=== PATIENT | male | born 1965 | race Caucasian/White ===

== ENCOUNTER → 2017-10-08 12:54 | Outpatient (CLI) | payer OTHER, SELFPAY ==
--- NOTE | 2017-10-10 07:00 | ONE_ITS ---
OCCUPATIONAL MEDICINE DATE OF SERVICE October 08, 2017 ASSESSMENT Lumbar strain, essentially resolved. PLAN He will continue performing stretches and exercises nightly. I am going to release him to [facility] today, although he is due to have one more PT reassessment in one months' time. He understands that if he e xperiences a flare-up, he can certainly contact the office for reassessment. Greater than 50% of this visit spent planning and coordinating care. 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 He does explain however, that he saw a brief worsening following an incident at work. He says on the after he had been on vacation for a week, he had returned to work and stepped off of the same p latform that had originally been associated with this injury. He says he felt immediate left lumbar d iscomfort and was very concerned at first. He says it lasted on a few hours and then spontaneously re solved. Likewise, after returning to PT that week, he says increasing his exercises through PT gave h im a little flare up, which lasted about two days. That took place on the first week of September, but f ollowing those two days, he says he has been very comfortable ever since. He is working without limit ations, tolerating that very well. He has exercises and stretches that he is performing every night. He has not needed medications for pain. PT is actually placing him on hold with plan to reassess in o ne month. REVIEW OF SYSTEMS Continues to feel generally well without loss of bladder or bowel control. No abdominal pain, nausea, vomiting, or GI complaints. No chest pain, cough, wheeze, or dyspnea. PAST MEDICAL HISTORY 1. Neck pain, which resolved with injection in 2016. 2. Carpal tunnel on the right. 3. Ulnar nerve release in 2015. 4. A distant history of lumbar surgery in 1984 and again in 2004. CURRENT MEDICATIONS He takes no current medications. SOCIAL HISTORY He smokes a pack of cigarettes daily. He rarely consumes alcohol. No substance abuse. OBJECTIVE GENERAL - Alert, pleasant, cooperative, in no acute distress. Gait is normal. Musculoskeletal exam - No tenderness to direct palpation of the lumbar spine. None in the paraspinou s muscles or the SI joints. DTR's - Patellars are 1+ bilaterally. Achilles are 1+ bilaterally. Straight leg raises are negative. Each extending 90 degrees. Range of motion - He was able to flex fully with fingertips reaching the floor. No pain at the end of flexion, extension, lateral bend or rotation. Heel and toe walk are intact. Sensory of lower extremities is intact.
== END ==
PROVIDERS: Visit Provider Nurse Practitioner Family
DX: M54.5 Low back pain (principal); M54.16 Radiculopathy, lumbar region; S39.012D Strain of muscle, fascia and tendon of lower back, subsequent encounter
CPT/HCPCS: 99214

== ENCOUNTER 2022-08-13 06:05 | Day surgery (SDC) | payer BC, SELFPAY ==
[2022-08-13] VITALS (10 sets, daily range): BP systolic 108–136; BP diastolic 68–98; PULSE 72–81; RESP 15–18; TEMP 36.5–36.7; O2SAT 95–98; BMI 34.0
--- NOTE | 2022-08-13 06:57 | W.ANESPRE ---
General Info Date of Service Date Performed: 08/13/22 Height: 5 ft 6 in Weight: 95.5 kg Body Mass Index (BMI): 34.0 Surgical Procedure: Operation Date: 08/13/22 07:40 Proposed Procedure Side Surgeon p Bronchoscopy w/BAL, Endobronchial Brushings, Possible Endobronchial Biopsy Desiree Kramer MD Meds Allergies and Home Medications Allergies Allergy/AdvReac Type Severity Reaction Status Date / Time No Known Allergies Allergy Verified 08/13/22 06:26 Home Medication Medication Instructions Recorded ammonium lactate 12 % topical cream 1 applic topical HS 07/26/22 cyclobenzaprine 10 mg tablet 10 mg PO TID PRN 07/26/22 varenicline 0.5 mg (11)-1 mg (42) See Rx Instructions PO PER PKG DIR 07/26/22 tablets in a dose pack (Chantix #53 dose pk Starting Month Box) varenicline 1 mg tablet (Chantix 1 mg PO BID #56 tabs 07/26/22 Continuing Month Box) Current Visit Medications: Current Medications Generic Name Dose Route Start Last Admin Trade Name Yobanyq PRN Reason Stop Dose Admin Albuterol/Ipratropium 3 ml 08/13/22 06:48 Albuterol/Ipratropium 3 Ml Upd Vial UPD 09/12/22 06:47 Q2H PRN PRN Ringer's Solution 1,000 mls @ 30 mls/hr 08/13/22 06:00 IV 09/09/22 23:59 INFUSION LAUREN IV Miscellaneous Supplies 1 each 08/13/22 06:00 Iv Access IV 09/09/22 23:59 DIRECTED LAUREN Sodium Chloride 0 ml 08/13/22 06:00 Normal Saline Flush 10 Ml Syr IV 09/09/22 23:59 PRN PRN Sodium Chloride 0 ml 08/13/22 06:00 Normal Saline 10 Ml Vial IJ 09/09/22 23:59 DIRECTED PRN Sterile Water 0 ml 08/13/22 06:00 Water,Injection,Sterile 10 Ml Vial IJ 09/09/22 23:59 DIRECTED PRN PFSH Active Problems Active Problems: Problem Status Onset Code Arthropathy M12.9 Benign paroxysmal positional vertigo H81.10 Carpal tunnel syndrome of left wrist G56.02 Cervical radiculopathy M54.12 Ganglion cyst M67.40 Heel callus L84 Insomnia G47.00 Intervertebral disc rupture M51.9 Lesion of ulnar nerve G56.20 Neck pain M54.2 Nicotine dependence F17.200 Pain in left wrist M25.532 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, U09.9 Shoulder joint pain M25.519 Subacute right lumbar radiculopathy M54.16 Other symptoms involving skin and integumentary tissues R23.8 Trigger finger, left middle finger M65.332 Endobronchial mass R91.8 Surgical History Surgical History H/O discectomy History of carpal tunnel release History of colonoscopy 12/30/20,10/30/19 Tobacco Smoking/Tobacco Use Status: Current every day Tobacco Type: cigarettes Smoking packs per day: 1 Smoking cigarettes per day: 20.0 and e-cigarettes Alcohol Alcohol Intake: current Alcohol intake frequency: holidays/special occasions only Substance Use Substance use: Never Substance use type: does not use Details: pt is currently vaping daily Vital Signs and Lab Results Vital Signs Most Recent Vital Signs in EMR: Most Recent Vital Signs Temp Pulse Resp BP Pulse Ox 36.5 C 81 18 136/98 H 97 08/13/22 06:27 08/13/22 06:27 08/13/22 06:27 08/13/22 06:27 08/13/22 06:27 Lab Results Blood Type / Crossmatch: No Data to Display Complete Blood Count: No Data to Display Complete Metabolic Panel: No Data to Display Liver Function Panel: No Data to Display Coagulation Panel: No Data to Display Cardiac Panel: No Data to Display Arterial Blood Gas: No Data to Display Venous Blood Gas: No Data to Display Pancreas Panel: No Data to Display Thyroid Panel: No Data to Display Infectious Disease: No Data to Display Blood Cultures: No Data to Display Toxicology Panel: No Data to Display Anesthesia Assessment and Plan Anesthesia History Personal History: No History of Anesthesia Complications Family History: No Family History of Anesthesia Complications Exercise Tolerance Exercise Tolerance: Metabolic Equivalents>4 Pertinent Negatives Pertinent Negatives: No Symptoms of GERD, No Major Cardiovascular Symptoms or Complaints, No Major Pulmonary Symptoms or Complaints and No History of CVA/TIA Cardiac & Pulmonary Exam Cardiac Exam: Normal S1/S2 Heart Sounds Pulmonary Exam: Clear Bilateral Breath Sounds Implantable Cardiac Device Does patient have a Pacemaker or an ICD?: No Airway Exam Known Difficult Airway: No Mallampati Class: 4 Mouth Opening: Narrow (< 3cm) Thyromental Distance: Less than 3 cm Neck Range of Motion: Full ROM Neck Circumference: Thick Teeth Condition: Normal Dentition ASA Classification ASA Score: ASA 2 Emergency Case?: No NPO Status NPO Status: NPO Clears >2 hours, Solids >8 hours Anesthesia Plan Resuscitation Status: Full Code Anesthesia Technique: General Anesthesia Airway Planned: Natural Airway Monitors Used: Standard Monitors
[2022-08-13] MEDS: Lactated Ringers 1,000 ML 30 ML IV (07:00)
[2022-08-13] MEDS: Lidocaine 1% Multi-Dose 10 ML VIAL (07:43)
--- NOTE | 2022-08-13 07:53 | PAPNONF_PTH ---
PATIENT: Graeme Dominguez LOC: [facility] U#:[id number] AGE/SX: 57/M ROOM: RE08/13/[address]: Desiree Kramer MD : 1965 BED: DIS: 08/13/2022 SPEC #: [id number] RECD: 08/13/22 12:56 STATUS: CHRIS REQ #: [id number] KVNG: 08/13/22 07:[address]: Desiree Kramer DEPT: [facility] Cytology RECD BY: Maria M Shetty ENTERED: 08/13/22 12:57 SP TYPE: PAPTHEOF STEPHANIE DR: Eric Espitia Tissues: 1 - BODY FLUID CYTO(NOT S/U/N/EM)[facility] 2 - BODY FLUID CYTO(SPUTUM/URINE)[facility] Procedures: BODY FLUID CYTO(NOT SPU/UR/NIP/ENDOM)[facility] BODY FLUID CYTO(URINE/SPUTUM) Comments: [id number] (REFRIGERATED)
--- NOTE | 2022-08-13 08:39 | W.PM.OP ---
Date of service: 08/13/22 Time of Service: 07:30 Operative Note Operative Note PRE-OP DIAGNOSIS: Endobronchial lesion POST-OP DIAGNOSIS: other (Normal exam) Refer to Anesthesia Record Procedure Description: Bronchoscopy Indication:Endobronchial lesion Procedure performed: Flexible bronchoscopy with BAL Sedation plan: General anesthesia Informed consent was obtained after the risks and benefits or the procedure were discussed.Anesthesia sedated and intubated the patient (see seperate report). A proper and complete OR compliant time out was performed. The therapeutic 6.2mm Olympus bronchoscope was inserted through the 8.0 endotracheal tube. The bronchoscope was inserted into the airways, were 3cc in total of 1% topical lidocaine was used the anesthetize the airways. The trachea was midline and without lesion or injury. The mucosa appeared normal and there were no signs of tracheomalacia. The juan pablo was sharp. All bronchial subsegments were visualized within each lobe and showed normal anatomy. There were thick, white secretions through the airways that were easily suctioned. There were no apparent endobronchial lesions/nodules/masses. Thorough inspection of the left hilar area was performed and no lesions were identified. A bronchoalveolar lavage was performed in the OLY. A total of 120cc of saline was administered with a return of 10cc. BAL was limited due to floppy airways with application of any negative force. The fluid was slightly cloudy in appearance. The bronchoscope was then removed and the case terminated. The patient was taken to PACU in stable condition. Samples collected:OLY BAL, bronchial washings Testing ordered:cell diff, bacterial, fungal and AFB cultures, cytopathology Complications:None Desiree Kramer MD Pulmonary & Critical Care Medicine
--- NOTE | 2022-08-13 09:19 | W.ANESPOSTOP ---
Postoperative Evaluation Date, Time and Location Date Performed: 08/13/22 Time Performed: 09:19 Patient Location: Day Surgery Unit Vital Signs Most Recent Imported Vital Signs: Most Recent Vital Signs Temp Pulse Resp BP Pulse Ox 36.5 C 74 16 108/81 95 08/13/22 08:40 08/13/22 08:40 08/13/22 08:40 08/13/22 08:40 08/13/22 08:40 Pain Score Most Recent Pain Score: Most Recent Pain Score Pain Level 0 08/13/22 08:40 Assessment Mental Status: Awake (Alert & Oriented to Patient Baseline) Airway and Respiratory Function: Patent airway with normal (patient baseline) respiratory exam Cardiovascular Function: Hemodynamically Stable Hydration Status: Adequately Hydrated Nausea & Vomiting: No Nausea or Vomiting Pain: Pt. Denies Any Pain Peripheral Nerve Block: Patient did not receive a nerve block Postoperative Comments:: Discussed care at bedside with patient and in the presence of spouse and DSU RN. Denied complaint and questions. Appropriate for discharge from anesthesia services.
[2022-08-15 09:53] LABS: Other Cells Fluid Relative See Comments %
[2022-09-11 08:53] LABS: Fungus Smear No Fungi Seen
[2022-09-11 08:54] LABS: Fungus Smear No Fungi Seen
== END 2022-08-13 09:26 | disposition home or self-care (01) ==
PROVIDERS: PCP Nurse Practitioner Family; Visit Provider Student in an Organized Health Care Education/Training Program
PROC: 0BJ08ZZ Inspection of Tracheobronchial Tree, Via Natural or Artificial Opening Endoscopic (ICD-10-PCS; CPT 31622; principal; 2022-08-13 07:30)
DX: J98.09 Other diseases of bronchus, not elsewhere classified (principal); F17.210 Nicotine dependence, cigarettes, uncomplicated
CPT/HCPCS: 31624; 80162; 87070; 87102; 87107; 87116; 87205; 87206; 88104; J1100; J2405

== ENCOUNTER 2023-01-16 10:36 | Outpatient (CLI) | payer BC, SELFPAY ==
--- NOTE | 2023-01-16 09:00 | DI.RAD_ITS ---
Exam(s) XR STANDING ALIGNMENT EXAM: XR STANDING ALIGNMENT CLINICAL HISTORY: BILATERAL KNEE PAIN. TECHNIQUE: 2D digital imaging was performed. Standing AP views were performed from the pelvis throu gh the ankles. COMPARISON: CR XR KNEE COMPLETE MIN 4V BILAT-M2 from 11/19/2022 FINDINGS: BONES: No acute fracture is present. No bony destructive lesion is seen. Leg length discrepancy: Minimal JOINTS: Knees: Moderate to severe narrowing of the medial femoral tibial joint spaces of both knees w ith varus angulation. Mild chondrocalcinosis. The ankle joints are unremarkable. The hip joints are unremarkable. SOFT TISSUE: Normal. IMPRESSION: To severe degenerative changes medial femoral tibial joint spaces of both knees.. No significant leg length discrepancy. DATA REPOSITORY: RADIATION DOSE DELIVERED:
== END 2023-01-16 10:37 | disposition home or self-care (01) ==
LOC: DIORS 10:36
PROVIDERS: PCP Nurse Practitioner Family; Visit Provider Student in an Organized Health Care Education/Training Program
DX: M17.0 Bilateral primary osteoarthritis of knee
CPT/HCPCS: 77073

== ENCOUNTER 2023-05-24 05:51 | Day surgery (SDC) | payer BC, SELFPAY ==
--- NOTE | 2023-05-23 13:51 | ANES.PREOP_ITS ---
General Info Date of Service Date Performed: 05/24/23 Height: 5 ft 6 in Weight: 97.522 kg Body Mass Index (BMI): 34.7 Surgical Procedure: Operation Date: 05/24/23 08:00 Proposed Procedure Side Surgeon p Knee Medial Unicondylar Arthroplasty Left Mikhail Roberts MD Meds Allergies and Home Medications Allergies Allergy/AdvReac Type Severity Reaction Status Date / Time No Known Allergies Allergy Verified 05/24/23 06:12 Home Medication Medication Instructions Recorded cyclobenzaprine 10 mg tablet 10 mg PO TID PRN 07/26/22 Current Visit Medications: Current Medications Generic Name Dose Route Start Last Admin Trade Name Freq PRN Reason Stop Dose Admin Ringer's Solution 1,000 mls @ 30 mls/hr 05/24/23 06:00 IV 05/24/23 23:59 INFUSION LAUREN Cefazolin Sodium/Dextrose 2 gm in 50 mls @ 100 mls/hr 05/24/23 06:00 Ancef Duplex IVPB 05/24/23 23:59 PREOP LAUREN Tranexamic Acid/Sodium Chloride 1,000 mg in 100 mls @ 600 mls/hr 05/24/23 0 6:00 IVPB 05/24/23 23:59 PREOP LAUREN IV Miscellaneous Supplies 1 each 05/24/23 06:00 Iv Access IV 05/24/23 23:59 DIRECTED LAUREN Sodium Chloride 0 ml 05/24/23 06:00 Normal Saline Flush 10 Ml Syr IV 05/24/23 23:59 PRN PRN Sodium Chloride 0 ml 05/24/23 06:00 Normal Saline 10 Ml Vial IJ 05/24/23 23:59 DIRECTED PRN Sterile Water 0 ml 05/24/23 06:00 Water,Injection,Sterile 10 Ml Vial IJ 05/24/23 23:59 DIRECTED PRN PFSH Active Problems Active Problems: Problem Status Onset Code Arthritis of knee, right M17.11 Arthritis of knee, left M17.12 Bilateral primary osteoarthritis of knee M17.0 Endobronchial mass R91.8 Trigger finger, left middle finger M65.332 Other symptoms involving skin and integumentary tissues R23.8 Subacute right lumbar radiculopathy M54.16 Shoulder joint pain M25.519 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, U09.9 Pain in left wrist M25.532 Nicotine dependence F17.200 Neck pain M54.2 Lesion of ulnar nerve G56.20 Intervertebral disc rupture M51.9 Insomnia G47.00 Heel callus L84 Ganglion cyst M67.40 Cervical radiculopathy M54.12 Carpal tunnel syndrome of left wrist G56.02 Benign paroxysmal positional vertigo H81.10 Arthropathy M12.9 Surgical History Surgical History H/O discectomy History of carpal tunnel release History of colonoscopy 12/30/20,10/30/19 Tobacco Smoking/Tobacco Use Status: Former Tobacco Use Alcohol Alcohol Intake: current Alcohol intake frequency: holidays/special occasions only Substance Use Substance use: Never Substance use type: does not use Vital Signs and Lab Results Vital Signs Most Recent Vital Signs in EMR: Temp Pulse Resp BP Pulse Ox 36.7 C 82 16 138/92 H 95 05/24/23 06:14 05/24/23 06:14 05/24/23 06:14 05/24/23 06:14 05/24/23 06:14 Lab Results Blood Type / Crossmatch: No Data to Display Complete Blood Count: No Data to Display Complete Metabolic Panel: No Data to Display Liver Function Panel: No Data to Display Coagulation Panel: No Data to Display Cardiac Panel: No Data to Display Arterial Blood Gas: No Data to Display Venous Blood Gas: No Data to Display Pancreas Panel: No Data to Display Thyroid Panel: No Data to Display Infectious Disease: No Data to Display Blood Cultures: No Data to Display Toxicology Panel: No Data to Display Anesthesia Assessment and Plan Anesthesia History Personal History: No History of Anesthesia Complications Family History: No Family History of Anesthesia Complications Exercise Tolerance Exercise Tolerance: Metabolic Equivalents>4 Cardiac & Pulmonary Exam Cardiac Exam: Normal S1/S2 Heart Sounds Pulmonary Exam: Clear Bilateral Breath Sounds Implantable Cardiac Device Does patient have a Pacemaker or an ICD?: No Airway Exam Known Difficult Airway: No Mallampati Class: 4 Mouth Opening: Narrow (< 3cm) Thyromental Distance: Less than 3 cm Neck Range of Motion: Full ROM Neck Circumference: Thick Teeth Condition: Normal Dentition ASA Classification ASA Score: ASA 2 Emergency Case?: No NPO Status NPO Status: NPO Clears >2 hours, Solids >8 hours Anesthesia Plan Resuscitation Status: Full Code Anesthesia Technique: General Anesthesia Airway Planned: Endotracheal Tube Pain Management: Surgeon and patient request nerve block Monitors Used: Standard Monitors Preoperative Comments:: 58 yo male for uni knee arthroplasty. Sig PMHx: cervical radiculopathy, vertigo, smoker, occ EtOH. denies major. Previous Anes: - bronch, glide 3, 2a. Discussed risks, benefits, and alternatives of spinal, GA, regional anesthesia. Plan for spinal with adductor +/- anterior femoral cutaneous.
[2023-05-24] VITALS (12 sets, daily range): BP systolic 136–168; BP diastolic 84–100; PULSE 80–93; RESP 16–25; TEMP 36.5–37; O2SAT 94–97; BMI 34.7
--- NOTE | 2023-05-24 07:05 | W.PM.DSUDISC ---
Date of service: 05/24/23 Time of Service: 11:00 Discharge Plan Disposition Patient Disposition: Home Condition: Stable Discharge Details Attending Provider: Mikhail Roberts Primary Care Provider: Eric Espitia Home Meds and New Rx's Prescriptions: New aspirin 81 mg capsule 81 mg PO BID 30 Days Qty: 60 0RF naproxen 250 mg tablet 250 - 500 mg PO BID PRN (Reason: moderate pain and swelling) Qty: 40 0RF oxycodone 5 mg tablet 5 - 10 mg PO .q4-6h PRN (Reason: severe pain) Qty: 18 0RF Continued cyclobenzaprine 10 mg tablet 10 mg PO TID PRN Discharge Instructions Additional Instructions: Surgery: Left medial unicondylar knee replacement Activity: Weightbearing as tolerated. Recommend elevation to minimize swelling and discomfort. Walk as comfort allows. May use crutches or walker as needed for a few weeks. It is important to restore full knee extension as soon as possible. Gently increase knee flexion over the next few weeks. Do not rest with pillows behind knee to prevent knee from getting stuck bent. Encourage ankle pumps and wiggling toes to increase circulation. A physical therapy prescription will be sent electronically to begin in 2-3 weeks. Prescriptions: Aspirin 81 mg take 1 twice a day to prevent a blood clot 30 days Naproxen 250 mg take 1-2 every 12 hours with a meal as needed for moderate pain Oxycodone 5 mg take 1-2 every 4-6 hours as needed for severe pain You may use [id number] Tylenol (acetaminophen) as needed for mild pain. These pain medications may be taken all at once or in different combinations as needed. Also, recommend Colace (docusate) as a stool softener as surgery and pain medicine cause constipation. You may try [id number] diphenhydramine (Benadryl) 25-50 mg nightly as a sleep aid Dressings: Leave Band-Aid in place until follow-up. Keep clean and dry at all times. May remove Clarence wrap tomorrow. May re-wrap with Clarence wrap to help control swelling as needed. Follow-up: 10-[address] Roberts You may take off the leg compression Clarence wrap and stockings tomorrow at home. You may also leave them on a few days longer if you have a history of leg swelling or edema. Let us know right away if you develop any redness, drainage, fevers, chest pain, or trouble breathing. Do not drink alcohol or drive for at least 24 hours after anesthesia. Please call the office during business hours with any questions or concerns. Stand Alone Forms: Anesthesia Discharge Inst., Anes.Nerve Block Instructions, David Viera ([facility]U) Referrals: Mikhail Roberts MD [ [facility] STAFF PHYSICIAN] - 06/05/23 9:00 am Discharge Orders Discharge Orders: Discharge Order (Routine); Ordered 05/24/23 Ordered By: Leesa Horner Discharge Data Discharge Date/Time-TO BE ENTERED AT DEPARTURE: 05/24/23 14:46 DS: Diagnosis Discharge Diagnosis (1) Arthritis of knee, left: Status: Acute
[2023-05-24] MEDS: Acetaminophen 500 MG TAB 1000 MG PO (07:12)
[2023-05-24] MEDS: Celecoxib 200 MG CAP 400 MG PO (07:12)
[2023-05-24] MEDS: Gabapentin 300 MG CAP PO (07:14)
[2023-05-24] MEDS: Lactated Ringers 1,000 ML 30 ML IV (07:15)
--- NOTE | 2023-05-24 07:16 | W.PM.OP ---
Date of service: 05/24/23 Time of Service: 07:30 Operative Note Operative Note DATE OF PROCEDURE: 05/24/23 PRE-OP DIAGNOSIS: Left knee medial compartmental arthritis POST-OP DIAGNOSIS: same PROCEDURE: Left knee medial unicompartmental arthroplasty, CPT # 60052 The retail administrative assistant was medically required as this procedure involves retraction, protection of neurovascular structures, and manipulation of multiple instruments and implants at the same time, which cannot be done without a skilled retail administrative assistant. SURGEON: Mikhail Roberts PROTECTION ENGINEER: Leesa Horner ANESTHESIA TYPE: Local By Surgeon, General LMA/ETT and Primary Nerve Block Refer to Anesthesia Record ESTIMATED BLOOD LOSS: 50 TOURNIQUET TIME: 0 COMPLICATIONS: None Patient was transported to: PACU Patient's condition: stable Implants: DePuy Sigma HP partial knee size 3 metal-backed tibial tray, 9 mm tibial insert fixed bearing, size 4 femoral component Indications: Please see complete medical record for details. Findings: Largely isolated medial compartment arthritis mild superior lateral trochlear marginal osteophyte formation with mild central trochlear chondromalacia. Intact ACL and lateral compartment. Procedure Description: The patient was taken to the operating room and transferred to the operating room table. General anesthesia was induced. All bony prominences were well-padded. Preoperative antibiotics and 1 g TXA were administered. A tourniquet was placed loosely over padding high on the patient's thigh. The knee and lower extremity were prepped and draped in the usual sterile fashion. The correct patient, procedure, and side of the procedure were all verified prior to incision. A slightly medial of midline longitudinal approach was used to the knee extending from the superior pole the patella to the distal aspect of the tibial tubercle. The quadriceps tendon, patella borders, and patellar tendon were exposed. A full-thickness arthrotomy was performed starting splitting the quadriceps tendon and leaving a sleeve of tissue on the medial aspect of the patella and taking care to progress along the medial margin the patellar tendon. The MCL was elevated off the proximal medial tibia. The tibial alignment jig was set in place on the anterior medial aspect of the tibia and carefully adjusted to achieve proper alignment in the coronal and sagittal planes. Reciprocating saw was used to create the vertical cut at the medial aspect of the medial tibial eminence taking care to protect the ACL ligament footprint. The transverse cut was then done using the microsagittal saw through the jig taking care to retract and protect the MCL. The bone piece and cut were inspected and found to be appropriate for patient anatomy. A box rasp was used to clean up the cut especially the L component. The 9 mm spacer block was inserted and found to have good stability in full extension and 8 mm spacer block in 90 degrees of flexion with approximately 2 mm of joint space opening in about 20 degrees of flexion. With the knee in extension, the tibial trial spacer block was used to malissa the rotational alignment and anterior extent of the femoral component. The spacer block was removed and the tibia was sized with the depth gauge. The -1 mm distal femoral cutting block was inserted taking care to orient it appropriately to account for the difference in extension and flexion gaps. The cut was done using the saw through the guide. The posterior cutting block was then applied to the distal cut, ensured to be flush, rotation set, and it was pinned in place. The posterior cut was completed through the guide. The guide was removed, and the femur was sized with the femoral sizing blocks. The appropriate sized cutting jig was selected. Care was taken to ensure the block was flush with the resected distal and posterior femur bone surfaces. A curved gouge was used to cut the profile of the proximal tip of the femoral prosthesis, malissa the extent of the anterior chamfer cut, and prevent trochlear cartilage delamination. The anterior cut was done using the osteotomes, the drill was used to drill the 2 peg holes, and the posterior chamfer cut was done through the jig with the saw. This last cutting block and bone cuts were removed. The medial meniscus remnant was removed. The femoral component trial was placed on the distal femur and the 8-9 mm spacer blocks showed appropriate balancing in flexion, extension, and again 2 mm of medial joint space opening in about 20 degrees of flexion. Tibial template was inserted and the size confirmed to be appropriate. The keel was used by hand to remove bone from the slot and the tibial peg drill was used in the peg hole. The pulse lavage was used to clean the bone surfaces. SmartSet medium viscosity cement was prepared. At the appropriate time during the early working phase, the cement was applied to the backside of the tibial and femoral components. Then, cement was carefully placed and pressurized into the proximal tibia taking care to only have minimal cement posteriorly. The tibial component was inserted at an angle and then impacted directing pressure from posterior to anterior to keep the flow of cement from posterior to anterior. Cement was then applied to the distal femur and the femoral component impacted. Excess cement was removed. The knee was brought into full extension and this position with axial load was maintained until the cement was completely hardened at 19 minutes. A combination R.E.C.K. (123 mg Ropivacaine, 0.25 mg Epinephrine, 0.04 mg Clonidine, and 15 mg Ketorolac) 50 ml injection was widely infiltrated about the knee. The wound was copiously irrigated with the pulse lavage and Surgiphor. Tibial tray trial was reinserted, and final 9 mm size confirmed to be most appropriate. Trial insert was removed, and the final tibial insert was inserted and clicked into place. The knee was tested through range of motion found to be stable with equal balancing from full extension to flexion past 90 degrees and a couple millimeters of medial joint space opening in 20-30 degrees of flexion. Appropriate hemostasis was achieved. The capsule was approximated using #1 Vicryl in a figure-of-8 interrupted fashion and then closed using Stratafix #1 PDS barbed suture in a running fashion. The superficial layers were irrigated. Subcutaneous tissue was closed using 2-0 Monocryl in a buried interrupted fashion. Skin was closed using 3-0 Monocryl in a buried subcuticular fashion. The skin incision was glued and then covered with a Mepilex Ag dressing. An Clarence wrap was applied from the foot up to the thigh.
[2023-05-24] MEDS: ceFAZolin 2 GM/50 ML BAG IVPB (07:34)
[2023-05-24] MEDS: TRANEXAMIC ACID/SOD. CHL. 1,000 MG/100 ML BAG 600 MG IVPB (07:38)
--- NOTE | 2023-05-24 09:03 | W.ANESNERVE ---
Nerve Block Single Injection Procedure Date and Time Date Performed: 05/24/23 Procedure Start: 07:17 Location Where Procedure Performed Procedure Location: Day Surgery Unit Reason Performed: Postoperative Analgesia Requesting Provider: Mikhail Roberts Timeout Performed Timeout Performed: Yes Monitoring Used ECG, Blood Pressure, SpO2 and See EMR for corresponding vital signs Sterility Sterility: Hand Hygiene, Surgical Cap, Surgical Mask, Sterile Gloves and Chlorhexidine Sedation Given During Procedure Sedation Given (Indicate Dose Given): Versed IV Dose:: 2mg Patient Mental Status Patient Mental Status: Sedate with meaningful communication Nerve Block 1st Nerve Block: Laterality: Left Block Type: Adductor Canal Ultrasound Image Saved?: Yes Needle / Catheter Used: 100mm SonoPlex II Local Anesthetic Bolus (Indicate Dose Given): Lidocaine used for local infiltration of skin, Injected in 3-5ml increments after negative blood aspiration and Bupivacaine 0.25% Dose:: 11 mL Additives (Indicate Dose Given): None Ultrasound: Sterile probe cover and gel used Nerve Stimulator: Supplement to Ultrasound use Paresthesia: None Procedure Tolerated: No Complications and Patient tolerated well Procedure Outcome: Successful Performed By: Elsie Rosales Supervised By: Mannie Zurita
--- NOTE | 2023-05-24 11:59 | DI.RAD_ITS ---
Exam(s) XR KNEE LT 2V AP,LAT EXAM: XR KNEE LT 2V AP,LAT INDICATION: Left knee arthritis. COMPARISON: No exams were available for comparison TECHNIQUE: 2D digital imaging was performed. Two views. Portable FINDINGS: A medial femoral tibial joint space prosthesis has been placed. The alignment appears satisfactory. There is residual postsurgical air in the soft tissues. DATA REPOSITORY: RADIATION DOSE DELIVERED:
--- NOTE | 2023-05-24 12:53 | W.ANESPOSTOP ---
Postoperative Evaluation Date, Time and Location Date Performed: 05/24/23 Time Performed: 12:53 Patient Location: Day Surgery Unit Vital Signs Most Recent Imported Vital Signs: Most Recent Vital Signs Temp Pulse Resp BP Pulse Ox 36.5 C 90 16 142/86 H 94 05/24/23 12:29 05/24/23 12:29 05/24/23 12:05/24/23 12:05/24/23 12:29 Pain Score Most Recent Pain Score: Most Recent Pain Score Pain Level 5 05/24/23 12:29 Assessment Mental Status: Awake (Alert & Oriented to Patient Baseline) Airway and Respiratory Function: Patent airway with normal (patient baseline) respiratory exam Cardiovascular Function: Hemodynamically Stable Hydration Status: Adequately Hydrated Nausea & Vomiting: No Nausea or Vomiting Pain: Pain is tolerable per patient Peripheral Nerve Block: Regional nerve block not resolved at time of post operative discharge
[2023-05-24] MEDS: oxyCODONE 5 MG TAB PO (12:54)
[2023-05-24] MEDS: Lactobacillus Acidophilus CAP 1 CAP PO (12:59)
--- NOTE | 2023-05-24 13:05 | PT.INIE ---
PT Notes Physical Therapy Day Surgery Initial Evaluation Date: 05/24/2023 Referring Doctor: Mikhail Roberts MD PT Orders: PT CONSULT: S/P Ortho Surgery Precautions: WBAT on left LE with AD. Patient Profile/Admitting Diagnosis: Adarsh is a 58-year-old male with left medial compartment arthritis and is status post left knee medial unicompartmental arthroplasty on postoperative day 0. 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 Works as a marketing operations manager. Independent with ADLs prior to surgery. Equipment Owned/DME: None Subjective: Reported 3?4/10 pain on the left knee at rest and with weight bearing. Reported minimal lightheadedness that resolved with mobility performance. Denied headache and chest pain throughout. Objective: General Observation: WAYNE wrap on L LE. TEDS to B legs. Mental Status: A and O x 4 Pain: As above ROM: Right Lower Extremity: Hip flexion WFL. Hip abduction WFL. Knee flexion WFL. Ankle dorsiflexion WFL. Ankle plantarflexion WFL. Left Lower Extremity: Hip flexion WFL. Hip abduction WFL. Knee flexion 0-100 degrees. Ankle dorsiflexion WFL. Ankle plantarflexion WFL. Strength: Right Lower Extremity: Hip flexors 5/5. Hip abductors 5/5. Knee flexors 5/5. Knee extensors 5/5. Ankle dorsiflexors 5/5. Ankle plantarflexors 5/5. Left Lower Extremity:Hip flexors 4/5. Hip abductors 4/5. Knee flexors 3-/5. Knee extensors 4-/5. Ankle dorsiflexors 5/5. Ankle plantarflexors 5/5. Sensation: Intact as to pain and light pressure in B LE Bed Mobility/Transfers: Minimal cueing provided for use of B hands as needed for support, movement sequence, AD management, and posture to reduce fall risk and minimize pain report Supine to sit standby assist Sit to stand stand by assist Stand to sit standby assist Bed to chair standby assist Gait: Facilitated safe and correct performance of level surface ambulation covering a distance of 150 feet using front wheeled walker with step through reciprocal heel-toe gait pattern requiring only standby assist and minimal verbal cueing for AD management, posture, limb movement sequence, to reduce fall risk and minimize pain report. Stairs: Guided patient with safe and correct negotiation of 6 x 4 inch steps and 4 x 6 inch steps holding onto bilateral rails with step to gait pattern requiring minimal verbal cueing for limb movement sequence , hand placement, and posture to minimize fall risk and reduce pain report. Balance: static Sitting: Normal Dynamic Sitting: Normal Static Standing: Fair Dynamic Standing: Fair Special Tests: Mobility Limitations Standardized Measure [facility] AM-PAC 6 clicks Basic Mobility Inpatient Short Form: Raw Score: 24 CMS Score: 0% deficit Informed Consent/Education: Patient instructed in purpose of PT consult. Packet containing partial TKA exercise protocol has been given to patient. Education and training on initial set of exercises that can be done at home have been completed with patient. Trained patient with correct performance of exercises below to maximize motor control, joint flexibility, soft tissue extensibility of the [] knee musculature: Access Code: [email or web address] URL: [email or web address] Date: 05/24/2023 Prepared by: Pearl Carroll Exercises - Supine Quad Set - 1 x daily - 7 x weekly - 1 sets - 10 reps - 5 hold - Supine Heel Slide - 1 x daily - 7 x weekly - 1 sets - 10 reps - 5 hold - Supine Ankle Pumps - 1 x daily - 7 x weekly - 1 sets - 10 reps - 5 hold - Small Range Straight Leg Raise - 1 x daily - 7 x weekly - 1 sets - 10 reps - 5 hold - Seated March - 1 x daily - 7 x weekly - 1 sets - 10 reps - 5 hold Assessment: Patient requires use of a front wheeled walker for mobility ADL performance maximize independence and reduce fall risk. Patient presents with clinical signs and symptoms consistent with current/admitting diagnoses that have resulted to mobility limitations, gait instability, generalized weakness, and impairment of motor control as demonstrated by the following impairment level findings: 1. Decreased strength to left knee major muscle groups 2. Impaired standing balance 3. Limitation of joint range of motion in left knee Impairments are contributing to the following functional limitations: 1. Inability to safely ambulate without assistive device 2. Increase completion time for mobility ADL performance 3. Increased fall risk Patient is assessed as a 46749 moderate complexity based on the following: History: 58-year-old male with impairment level findings, functional limitations, and past medical history as indicated above Examination: Demonstrable impairment in strength, balance, and mobility level with underlying impairments and functional limitations as documented above Presentation: Evolving Decision Makin moderate complexity Goals: N/A. PT evaluation and 1-2 treatment sessions only for functional mobility training using recommended AD and for HEP instruction. Plan of Care/Treatment Plan: N/A. PT evaluation and 1-2 treatment session only for functional mobility training using recommended AD and for HEP instruction. DISCHARGE RECOMMENDATIONS: Home when medically cleared by orthopedic surgeon. Recommend outpatient PT services in order to optimize functional mobility outcomes and facilitate return to independent community ambulation without an assistive device. TREATMENT CODE/TIME: 03390 x 20 minutes for 1 unit, 88392 x 23 minutes for 2 units (13:05-13:48). Thank you for the opportunity to participate in the care of this patient. Please sign an return this page within 30 days if you agree with the above POC. Thank you! Physician Signature Date [facility] Thank you for the opportunity to participate in the care of this patient. Pearl Carroll PT, DPT, CLT [facility] [place], [place]
== END 2023-05-24 14:46 | disposition home or self-care (01) ==
PROVIDERS: PCP Nurse Practitioner Family; Visit Provider Student in an Organized Health Care Education/Training Program
PROC: (CPT 27446; principal; 2023-05-24 07:30)
DX: M17.12 Unilateral primary osteoarthritis, left knee (principal)
CPT/HCPCS: 27446; 76942; 97162; 97530; 73560; C1776; J0665; J0690; J1100; J1885; J1920; J2001; J2250; J2371; J2405; J2704

== ENCOUNTER 2023-06-05 11:50 | Outpatient (CLI) | payer BC, SELFPAY ==
--- NOTE | 2023-06-05 09:00 | DI.RAD_ITS ---
Exam(s) XR KNEE LT 2V AP,LAT EXAM: XR KNEE LT 2V AP,LAT CLINICAL HISTORY: F/U LEFT UKA. TECHNIQUE: 2D digital imaging was performed. Three views. COMPARISON: CR XR KNEE LT 2V AP,LAT from 05/24/2023 FINDINGS: BONES: There has been no change in the medial femoral tibial joint space prosthesis. No adjacent abn ormal bony lucencies. No acute fracture is present. No bony destructive lesion is seen. JOINTS: The knee is normally aligned. A joint effusion is seen. SOFT TISSUE: Anterior swelling. IMPRESSION: Stable appearance of knee prosthesis. DATA REPOSITORY: RADIATION DOSE DELIVERED:
== END 2023-06-05 11:51 | disposition home or self-care (01) ==
LOC: DIORS 11:50
PROVIDERS: PCP Nurse Practitioner Family; Visit Provider Student in an Organized Health Care Education/Training Program
DX: M25.462 Effusion, left knee (principal); Z96.652 Presence of left artificial knee joint
CPT/HCPCS: 73560

== ENCOUNTER 2023-06-21 06:01 | Day surgery (SDC) | payer BC, SELFPAY ==
[2023-06-21] VITALS (10 sets, daily range): BP systolic 131–156; BP diastolic 82–95; PULSE 78–86; RESP 11–23; TEMP 36.4–37; O2SAT 76–98; BMI 33.9
[2023-06-21] MEDS: Gabapentin 300 MG CAP PO (06:27)
[2023-06-21] MEDS: Celecoxib 200 MG CAP 400 MG PO (06:27)
[2023-06-21] MEDS: Acetaminophen 500 MG TAB 1000 MG PO (06:27)
[2023-06-21] MEDS: Lactated Ringers 1,000 ML 30 ML IV (06:46)
--- NOTE | 2023-06-21 07:09 | W.PM.DSUDISC ---
Date of service: 06/21/23 Time of Service: 12:30 Discharge Plan Disposition Patient Disposition: Home Condition: Stable Discharge Details Attending Provider: Mikhail Roberts Primary Care Provider: Eric Espitia Home Meds and New Rx's Prescriptions: New naproxen 250 mg tablet 250 - 500 mg PO BID PRN (Reason: moderate pain and swelling) Qty: 40 0RF oxycodone 5 mg tablet 5 - 10 mg PO .q4-6h PRN (Reason: severe pain) Qty: 25 0RF Continued acetaminophen 500 mg capsule 500 mg PO Q6H PRN cyclobenzaprine 10 mg tablet 10 mg PO TID PRN aspirin 81 mg capsule 81 mg PO BID 30 Days Qty: 60 0RF naproxen 250 mg tablet 250 - 500 mg PO BID PRN (Reason: moderate pain and swelling) Qty: 40 0RF Discharge Instructions Additional Instructions: Surgery: Right medial unicondylar knee replacement Activity: Weightbearing as tolerated. Recommend elevation to minimize swelling and discomfort. Walk as comfort allows. May use crutches or walker as needed for a few weeks. It is important to restore full knee extension as soon as possible. Gently increase knee flexion over the next few weeks. Do not rest with pillows behind knee to prevent knee from getting stuck bent. Encourage ankle pumps and wiggling toes to increase circulation. A physical therapy prescription will be sent electronically to begin in 2-3 weeks. Prescriptions: Aspirin 81 mg take 1 twice a day to prevent a blood clot 30 days, starting tomorrow morning Naproxen 250 mg take 1-2 every 12 hours with a meal as needed for moderate pain Oxycodone 5 mg take 1-2 every 4-6 hours as needed for severe pain You may use [id number] Tylenol (acetaminophen) as needed for mild pain. These pain medications may be taken all at once or in different combinations as needed. Also, recommend Colace (docusate) as a stool softener as surgery and pain medicine cause constipation. You may try [id number] diphenhydramine (Benadryl) 25-50 mg nightly as a sleep aid Dressings: Leave Band-Aid in place until follow-up. Keep clean and dry at all times. May remove Clarence wrap tomorrow. May re-wrap with Clarence wrap to help control swelling as needed. Follow-up: 10-[address] Roberts You may take off the leg compression Clarence wrap and stockings tomorrow at home. You may also leave them on a few days longer if you have a history of leg swelling or edema. Let us know right away if you develop any redness, drainage, fevers, chest pain, or trouble breathing. Do not drink alcohol or drive for at least 24 hours after anesthesia. Please call the office during business hours with any questions or concerns. Stand Alone Forms: Anesthesia Discharge Inst.Cuco.Nerve Block Instructions, David Viera (DSU) Discharge Orders Discharge Orders: Discharge Order (Routine); Ordered 06/21/23 Ordered By: Leesa Horner Discharge Data Discharge Date/Time-TO BE ENTERED AT DEPARTURE: 06/21/23 13:30 DS: Diagnosis Discharge Diagnosis (1) Arthritis of knee, right: Status: Acute
--- NOTE | 2023-06-21 07:12 | W.PM.OP ---
Date of service: 06/21/23 Time of Service: 07:30 Operative Note Operative Note DATE OF PROCEDURE: 06/21/23 PRE-OP DIAGNOSIS: Right knee medial compartmental arthritis POST-OP DIAGNOSIS: same PROCEDURE: Right knee medial unicompartmental arthroplasty, CPT # 30724 The assistant store manager operations was medically required as this procedure involves retraction, protection of neurovascular structures, and manipulation of multiple instruments and implants at the same time, which cannot be done without a skilled assistant store manager operations. SURGEON: Mikhail Roberts NEWS GATHERING TECHNICIAN: Leesa Horner ANESTHESIA TYPE: Local By Surgeon, General LMA/ETT and Primary Nerve Block Refer to Anesthesia Record ESTIMATED BLOOD LOSS: 75 TOURNIQUET TIME: 0 COMPLICATIONS: None Patient was transported to: PACU Patient's condition: stable Implants: DePuy Sigma HP partial knee size 3 metal-backed tibial tray, 8 mm tibial insert fixed bearing, size 4 femoral component Indications: Please see complete medical record for details. Findings: Largely isolated medial compartment arthritis. Intact ACL and lateral and patellofemoral compartments. Procedure Description: The patient was taken to the operating room and transferred to the operating room table. General anesthesia was induced after attempted spinal. All bony prominences were well-padded. Preoperative antibiotics and 1 g TXA were administered. A tourniquet was placed loosely over padding high on the patient's thigh. The Right knee and lower extremity were prepped and draped in the usual sterile fashion. The correct patient, procedure, and side of the procedure were all verified prior to incision. A slightly medial of midline longitudinal approach was used to the knee extending from the superior pole the patella to the distal aspect of the tibial tubercle. The quadriceps tendon, patella borders, and patellar tendon were exposed. A full-thickness arthrotomy was performed starting splitting the quadriceps tendon and leaving a sleeve of tissue on the medial aspect of the patella and taking care to progress along the medial margin the patellar tendon. The MCL was elevated off the proximal medial tibia. The tibial alignment jig was set in place on the anterior medial aspect of the tibia and carefully adjusted to achieve proper alignment in the coronal and sagittal planes. Reciprocating saw was used to create the vertical cut at the medial aspect of the medial tibial eminence taking care to protect the ACL ligament footprint. The transverse cut was then done using the microsagittal saw through the jig taking care to retract and protect the MCL. The bone piece and cut were inspected and found to be appropriate for patient anatomy. A box rasp was used to clean up the cut especially the L component. The 8 mm spacer block was inserted and found to have good good equal stability in full extension and 90 degree flexion with approximately 2 mm of joint space opening in about 20 degrees of flexion. With the knee in extension, the tibial trial spacer block was used to malissa the rotational alignment and anterior extent of the femoral component. The spacer block was removed and the tibia was sized with the depth gauge. The distal femoral cutting block was inserted taking care to orient it appropriatel. The cut was done using the saw through the guide. The posterior cutting block was then applied to the distal cut, ensured to be flush, rotation set, and it was pinned in place. The posterior cut was completed through the guide. The guide was removed, and the femur was sized with the femoral sizing blocks. The appropriate sized cutting jig was selected. Care was taken to ensure the block was flush with the resected distal and posterior femur bone surfaces. A curved gouge was used to cut the profile of the proximal tip of the femoral prosthesis, malissa the extent of the anterior chamfer cut, and prevent trochlear cartilage delamination. The anterior cut was done using the osteotomes, the drill was used to drill the 2 peg holes, and the posterior chamfer cut was done through the jig with the saw. This last cutting block and bone cuts were removed. The medial meniscus remnant was removed. The femoral component trial was placed on the distal femur and the 8 mm spacer blocks showed appropriate balancing in flexion, extension, and again 2 mm of medial joint space opening in about 20 degrees of flexion. Tibial template was inserted and the size confirmed to be appropriate. The keel was used by hand to remove bone from the slot and the tibial peg drill was used in the peg hole. The pulse lavage was used to clean the bone surfaces. SmartSet medium viscosity cement was prepared. At the appropriate time during the early working phase, the cement was applied to the backside of the tibial and femoral components. Then, cement was carefully placed and pressurized into the proximal tibia taking care to only have minimal cement posteriorly. The tibial component was inserted at an angle and then impacted directing pressure from posterior to anterior to keep the flow of cement from posterior to anterior. Cement was then applied to the distal femur and the femoral component impacted. Excess cement was removed. The knee was brought into full extension and this position with axial load was maintained until the cement was completely hardened at 19 minutes. A combination R.E.C.K. (123 mg Ropivacaine, 0.25 mg Epinephrine, 0.04 mg Clonidine, and 15 mg Ketorolac) 50 ml injection was widely infiltrated about the knee. The wound was copiously irrigated with the pulse lavage and Surgiphor. Tibial tray trial was reinserted, and final 8 mm size confirmed to be most appropriate. Trial insert was removed, and the final tibial insert was inserted and clicked into place. The knee was tested through range of motion found to be stable with equal balancing from full extension to flexion past 90 degrees and a couple millimeters of medial joint space opening in 20-30 degrees of flexion. Appropriate hemostasis was achieved. The capsule was approximated using #1 Vicryl in a figure-of-8 interrupted fashion and then closed using Stratafix #1 PDS barbed suture in a running fashion. The superficial layers were irrigated. Subcutaneous tissue was closed using 2-0 Monocryl in a buried interrupted fashion. Skin was closed using 3-0 Monocryl in a buried subcuticular fashion. The skin incision was glued and then covered with a Mepilex Ag dressing. An Clarence wrap was applied from the foot up to the thigh.
--- NOTE | 2023-06-21 07:20 | ANES.PREOP_ITS ---
General Info Date of Service Date Performed: 06/21/23 Height: 5 ft 6 in Weight: 95.3 kg Body Mass Index (BMI): 33.9 Surgical Procedure: Operation Date: 06/21/23 08:00 Proposed Procedure Side Surgeon p Medial Unicondylar Knee Arthroplasty Right Mikhail Roberts MD Meds Allergies and Home Medications Allergies Allergy/AdvReac Type Severity Reaction Status Date / Time No Known Allergies Allergy Verified 06/21/23 06:08 Home Medication Medication Instructions Recorded cyclobenzaprine 10 mg tablet 10 mg PO TID PRN 07/26/22 aspirin 81 mg capsule 81 mg PO BID prevent blood clot 30 05/24/23 days #60 caps naproxen 250 mg tablet 250 - 500 mg (1 - 2 x 250 mg) PO 05/24/23 BID PRN moderate pain and swelling #40 tabs acetaminophen 500 mg capsule 500 mg PO Q6H PRN 06/18/23 naproxen 250 mg tablet 250 - 500 mg (1 - 2 x 250 mg) PO 06/21/23 BID PRN moderate pain and swelling #40 tabs oxycodone 5 mg tablet 5 - 10 mg (1 - 2 x 5 mg) PO .q4-6h 06/21/23 PRN severe pain #25 tabs Current Visit Medications: Current Medications Generic Name Dose Route Start Last Admin Trade Name Freq PRN Reason Stop Dose Admin Acetaminophen 1,000 mg 06/21/23 06:00 06/21/23 06:27 Acetaminophen 500 Mg Tab PO 06/21/23 23:59 1,000 mg PREOP LAUREN Administration Celecoxib 400 mg 06/21/23 06:00 06/21/23 06:27 Celecoxib 200 Mg Cap PO 06/21/23 23:59 400 mg PREOP LAUREN Administration Gabapentin 300 mg 06/21/23 06:00 06/21/23 06:27 Gabapentin 300 Mg Cap PO 06/21/23 23:59 300 mg PREOP LAUREN Administration Ringer's Solution 1,000 mls @ 30 mls/hr 06/21/23 06:00 06/21/23 06:46 IV 06/21/23 23:59 30 mls/hr INFUSION LAUREN Administration Cefazolin Sodium/Dextrose 2 gm in 50 mls @ 100 mls/hr 06/21/23 06:00 Ancef Duplex IVPB 06/21/23 23:59 PREOP LAUREN Tranexamic Acid/Sodium Chloride 1,000 mg in 100 mls @ 600 mls/hr 06/21/23 06:00 IVPB 06/21/23 23:59 PREOP LAUREN Cefazolin Sodium/Dextrose 1 gm in 50 mls @ 100 mls/hr 06/21/23 11:30 Ancef Duplex IVPB 06/21/23 11:59 NOW ONE IV Miscellaneous Supplies 1 each 06/21/23 06:00 Iv Access IV 06/21/23 23:59 DIRECTED LAUREN Lactobacillus Acidophilus/Casei 1 cap 06/21/23 12:30 L. Acidophilus, Casei, Rhamnosus Cap PO 07/21/23 12:29 DAILY LAUREN Oxycodone HCl 0 mg 06/21/23 07:07 Oxycodone 5 Mg Tab PO 07/21/23 07:06 Q3H PRN PRN Pain Sodium Chloride 0 ml 06/21/23 06:00 Normal Saline Flush 10 Ml Syr IV 06/21/23 23:59 PRN PRN Sodium Chloride 0 ml 06/21/23 06:00 Normal Saline 10 Ml Vial IJ 06/21/23 23:59 DIRECTED PRN Sterile Water 0 ml 06/21/23 06:00 Water,Injection,Sterile 10 Ml Vial IJ 06/21/23 23:59 DIRECTED PRN PFSH Active Problems Active Problems: Problem Status Onset Code History of unicondylar arthroplasty of left knee Z96.652 Arthritis of knee, right M17.11 Arthritis of knee, left M17.12 Bilateral primary osteoarthritis of knee M17.0 Endobronchial mass R91.8 Trigger finger, left middle finger M65.332 Other symptoms involving skin and integumentary tissues R23.8 Subacute right lumbar radiculopathy M54.16 Shoulder joint pain M25.519 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, U09.9 Pain in left wrist M25.532 Nicotine dependence F17.200 Neck pain M54.2 Lesion of ulnar nerve G56.20 Intervertebral disc rupture M51.9 Insomnia G47.00 Heel callus L84 Ganglion cyst M67.40 Cervical radiculopathy M54.12 Carpal tunnel syndrome of left wrist G56.02 Benign paroxysmal positional vertigo H81.10 Arthropathy M12.9 Surgical History Surgical History H/O discectomy History of carpal tunnel release History of colonoscopy 12/30/20,10/30/19 Tobacco Smoking/Tobacco Use Status: Former Tobacco Use Alcohol Alcohol Intake: current Alcohol intake frequency: holidays/special occasions only Substance Use Substance use: Never Substance use type: does not use Vital Signs and Lab Results Vital Signs Most Recent Vital Signs in EMR: Most Recent Vital Signs Temp Pulse Resp BP Pulse Ox 37.0 C 85 23 140/92 H 96 06/21/23 07:05 06/21/23 07:05 06/21/23 07:05 06/21/23 07:05 06/21/23 07:05 Lab Results Blood Type / Crossmatch: No Data to Display Complete Blood Count: No Data to Display Complete Metabolic Panel: No Data to Display Liver Function Panel: No Data to Display Coagulation Panel: No Data to Display Cardiac Panel: No Data to Display Arterial Blood Gas: No Data to Display Venous Blood Gas: No Data to Display Pancreas Panel: No Data to Display Thyroid Panel: No Data to Display Infectious Disease: No Data to Display Blood Cultures: No Data to Display Toxicology Panel: No Data to Display Imaging and Studies Imaging and Studies Study information below may be from another EMR and interpreted by another sinan carr. Please see original notes in EMR for more complete details. Other Study Summary:: chest CT 2022 reviewed and results in chart Anesthesia Assessment and Plan Anesthesia History Personal History: No History of Anesthesia Complications Family History: No Family History of Anesthesia Complications Exercise Tolerance Exercise Tolerance: Metabolic Equivalents>4 Pertinent Negatives Pertinent Negatives: No Symptoms of GERD, No Major Cardiovascular Symptoms or Complaints, No Major Pulmonary Symptoms or Complaints and No History of CVA/TIA Cardiac & Pulmonary Exam Cardiac Exam: Normal S1/S2 Heart Sounds Pulmonary Exam: Clear Bilateral Breath Sounds (harsh sounding at bases ) Implantable Cardiac Device Does patient have a Pacemaker or an ICD?: No Airway Exam Known Difficult Airway: No Mallampati Class: 4 Mouth Opening: Narrow (< 3cm) Thyromental Distance: Less than 3 cm Neck Range of Motion: Full ROM Neck Circumference: Thick Teeth Condition: Normal Dentition ASA Classification ASA Score: ASA 2 Emergency Case?: No NPO Status NPO Status: NPO Clears >2 hours, Solids >8 hours Anesthesia Plan Resuscitation Status: Full Code Anesthesia Technique: Spinal Anesthesia Airway Planned: Natural Airway Pain Management: Surgeon and patient request nerve block Monitors Used: Standard Monitors and SedLine Preoperative Comments:: discussed spinal option with pt and pt reports hx of back sx; discussed general as backup plan if spinal failure and pt verbalized understanding
[2023-06-21] MEDS: ceFAZolin 2 GM/50 ML BAG IVPB (07:25)
[2023-06-21] MEDS: TRANEXAMIC ACID/SOD. CHL. 1,000 MG/100 ML BAG 600 MG IVPB (07:48)
--- NOTE | 2023-06-21 08:12 | W.ANESNERVE ---
Nerve Block Single Injection Procedure Date and Time Date Performed: 06/21/23 Procedure Start: 07:05 Location Where Procedure Performed Procedure Location: Day Surgery Unit Reason Performed: Postoperative Analgesia Requesting Provider: Mikhail Roberts Timeout Performed Timeout Performed: Yes Monitoring Used ECG, Blood Pressure, SpO2 and See EMR for corresponding vital signs Sterility Sterility: Hand Hygiene, Surgical Cap, Surgical Mask, Sterile Gloves and Chlorhexidine Sedation Given During Procedure Sedation Given (Indicate Dose Given): Versed IV Dose:: 2mg Patient Mental Status Patient Mental Status: Sedate with meaningful communication Nerve Block 1st Nerve Block: Laterality: Right Block Type: Adductor Canal Ultrasound Image Saved?: Yes Needle / Catheter Used: 100mm SonoPlex II Local Anesthetic Bolus (Indicate Dose Given): Lidocaine used for local infiltration of skin, Injected in 3-5ml increments after negative blood aspiration, Bupivacaine 0.25% Dose:: 10mL and Exparel Dose:: 10mL Additives (Indicate Dose Given): None Ultrasound: Sterile probe cover and gel used Nerve Stimulator: Supplement to Ultrasound use Paresthesia: None Procedure Tolerated: No Complications and Patient tolerated well Procedure Outcome: Successful Performed By: Elsie Rosales Supervised By: Bre Rosenthal
[2023-06-21] MEDS: Bupivacaine 0.25% Pres-Free W/EPI 30 ML VIAL (08:21)
[2023-06-21] MEDS: ceFAZolin 1 GM/50 ML BAG IVPB (11:22)
--- NOTE | 2023-06-21 11:57 | DI.RAD_ITS ---
Exam(s) XR KNEE RT 2V AP,LAT EXAM: XR KNEE RT 2V AP,LAT CLINICAL HISTORY: knee arthritis. TECHNIQUE: 2D digital imaging was performed. Two images were obtained. AP and lateral views were ob tained. COMPARISON: There are no priors for comparison. FINDINGS: BONES: The patient is now status post partial right knee replacement. No fracture or dislocation. JOINTS: The orthopedic hardware is in good position. No evidence of hardware loosening. SOFT TISSUE: There is air seen in the soft tissues around the knee which is likely postsurgical. Ath erosclerotic calcification is present. IMPRESSION: Right partial knee replacement. DATA REPOSITORY: RADIATION DOSE DELIVERED:
--- NOTE | 2023-06-21 12:10 | W.ANESPOSTOP ---
Postoperative Evaluation Date, Time and Location Date Performed: 06/21/23 Time Performed: 12:10 Patient Location: PACU Vital Signs Most Recent Imported Vital Signs: Most Recent Vital Signs Temp Pulse Resp BP Pulse Ox 36.7 C 78 22 155/90 H 98 06/21/23 12:07 06/21/23 12:07 06/21/23 12:07 06/21/23 12:07 06/21/23 12:07 Pain Score Most Recent Pain Score: Most Recent Pain Score Pain Level 4 06/21/23 12:07 Assessment Mental Status: Awake (Alert & Oriented to Patient Baseline) Airway and Respiratory Function: Patent airway with normal (patient baseline) respiratory exam Cardiovascular Function: Hemodynamically Stable Hydration Status: Adequately Hydrated Nausea & Vomiting: No Nausea or Vomiting Pain: Pain is tolerable per patient Peripheral Nerve Block: Regional nerve block not resolved at time of post operative discharge
[2023-06-21] MEDS: oxyCODONE 5 MG TAB PO (12:37)
== END 2023-06-21 13:30 | disposition home or self-care (01) ==
PROVIDERS: PCP Nurse Practitioner Family; Visit Provider Student in an Organized Health Care Education/Training Program
PROC: (CPT 27446; principal; 2023-06-21 07:30)
DX: M17.11 Unilateral primary osteoarthritis, right knee (principal)
CPT/HCPCS: 27446; 76942; 73560; C1776; C9290; J0665; J0690; J1100; J2001; J2250; J2371; J2405; J2704; J3475

== ENCOUNTER 2023-07-02 15:40 | Outpatient (CLI) | payer BC, SELFPAY ==
--- NOTE | 2023-07-02 09:29 | DI.RAD_ITS ---
Exam(s) XR KNEE RT 2V AP,LAT EXAM: XR KNEE RT 2V AP,LAT CLINICAL HISTORY: evaluation of right knee. TECHNIQUE: 2D digital imaging was performed. Two images were obtained. AP and lateral views were ob tained. COMPARISON: CR XR KNEE RT 2V AP,LAT from 06/21/2023 FINDINGS: BONES: There are stable post operative changes of a partial right knee replacement present. No fract ure or dislocation. JOINTS: The orthopedic hardware is in good position. No evidence of hardware loosening. Mild spurri ng is seen at the posterior patella. There is a small joint effusion. SOFT TISSUE: Normal. IMPRESSION: Stable partial right knee replacement. DATA REPOSITORY: RADIATION DOSE DELIVERED:
--- NOTE | 2023-07-02 09:29 | DI.RAD_ITS ---
Exam(s) XR KNEE LT 2V AP,LAT EXAM: XR KNEE LT 2V AP,LAT CLINICAL HISTORY: evaluation. TECHNIQUE: 2D digital imaging was performed. Two images were obtained. AP and lateral views were ob tained. COMPARISON: CR XR KNEE LT 2V AP,LAT from 06/05/2023 FINDINGS: BONES: There are stable post operative changes of a partial left knee replacement present. No fractu re or dislocation. There is a small enthesophyte at the anterior superior patella. JOINTS: The orthopedic hardware is in good position. No evidence of hardware loosening. Tiny enthes ophytes are seen at the posterior patella. There is a small joint effusion which has decreased in si ze. SOFT TISSUE: Normal. IMPRESSION: Stable partial knee replacement. DATA REPOSITORY: RADIATION DOSE DELIVERED:
== END 2023-07-02 15:41 | disposition home or self-care (01) ==
LOC: DIORS 15:41
PROVIDERS: PCP Nurse Practitioner Family; Visit Provider Student in an Organized Health Care Education/Training Program
DX: M17.0 Bilateral primary osteoarthritis of knee (principal); Z96.651 Presence of right artificial knee joint; Z96.652 Presence of left artificial knee joint; Z98.890 Other specified postprocedural states
CPT/HCPCS: 73560

== ENCOUNTER 2023-07-22 07:55 | Emergency (ER) | payer OTHER, BC, SELFPAY ==
[2023-07-22 08:01] VITALS: BP 147/86; PULSE 88; RESP 16; TEMP 36.7; O2SAT 97
--- NOTE | 2023-07-22 08:15 | DI.CT_ITS ---
Exam(s) CT LOWER EXTREMITY RT WO EXAM: CT LOWER EXTREMITY RT WO CLINICAL HISTORY: Right knee pain, infection, recent arthroplasty,. TECHNIQUE: Imaging Protocol: Axial computed tomography images with coronal and sagittal reformatted images were created and reviewed. CONTRAST MATERIAL: Noncontrast COMPARISON: CR XR KNEE RT 2V AP,LAT from 07/02/2023 CR XR KNEE LT 2V AP,LAT from 07/02/[address] LOWER EXTREMITY LT WO from 07/22/2023 FINDINGS: Bones: A medial femoral tibial joint space prosthesis is again noted. There is in acute comminuted f racture in the medial aspect of the tibial plateau, beneath the level of the prosthesis with some imp action. No additional fractures. No cellulitic or osteomyelitic changes are identified. No lytic or sclerotic lesions are identified. Joints: Moderate-sized joint effusion. There is no significant joint space narrowing. No significan t periarticular spurring. Soft Tissues: Marked anterior soft tissue swelling. IMPRESSION: Comminuted, impacted fracture of the medial tibial metaphysis beneath the level of the prosthesis. RADIATION DOSE DELIVERED: Total DLP DATA REPOSITORY: All CT scans at this facility are submitted to the National Radiology Data Registry (NRDR) Dose Index Registry (DIR) with the [employer] ([employer]). RADIATION OPTIMIZATION: All CT scans at this facility use at least one of these dose optimization te chniques: automated exposure control; mA and/or kV adjustment per patient size (includes targeted exa ms where dose is matched to clinical indication); or iterative reconstruction.
--- NOTE | 2023-07-22 08:27 | W.ED.GENAD ---
Discharge Plan Disposition Patient Disposition: Home Condition: Stable Discharge Details Clinical Impression: Periprosthetic fracture around internal prosthetic left knee joint, Periprosthetic fracture around internal prosthetic right knee joint, Cellulitis of knee, right Primary Care Provider: Eric Espitia ED Provider: Adalgisa Paiz Home Meds and New Rx's Prescriptions: New cephalexin 500 mg tablet 500 mg PO BID 10 Days Qty: 20 0RF No Action acetaminophen 500 mg capsule 500 mg PO Q6H PRN aspirin 81 mg tablet,delayed release (DR/EC) 81 mg PO DAILY oxycodone 5 mg tablet 5 - 10 mg PO Q4H MDD 60mg PRN (Reason: pain, severe) Qty: 14 0RF cyclobenzaprine 10 mg tablet 10 mg PO TID PRN naproxen 250 mg tablet 250 - 500 mg PO BID PRN (Reason: moderate pain and swelling) Qty: 40 0RF Discharge Instructions Instructions: Leg Fracture (ED), Cellulitis (ED) Additional Instructions: CT shows that you have fractures in both of your knees. You do have an infection on the surface of your right knee. You were given antibiotics here today. Please take the antibiotics as prescribed. Take it with yogurt or probiotic. Please follow the follow-up directions per orthopedics. Your images were sent down to [facility]. Please follow-up with orthopedics at [facility] or the ER at [facility] if needed or return here for any fever chills heart beating fast vomiting or any worsening of your condition. Follow up with primary care provider in 3-5 days if needed. Return to ED sooner if any worsening or concerns. Please take Tylenol or Ibuprofen with food every 4-6 hours as needed for pain and swelling. Continue with nonweightbearing as instructed by orthopedics. Referrals: [facility] [Outside] - 5 days Discharge Data Discharge Date/Time-TO BE ENTERED AT DEPARTURE: 07/22/23 12:26 HPI General Mode of arrival: wheelchair. Date/Time Provider Initiated Documentation: 07/22/23 08:11. Limitations to Documentation: no limitations. Information obtained by: patient, family, RN notes reviewed and old records reviewed. HPI Narrative: 58-year-old male presents to the ER with a chief complaint of right postoperative knee pain. Patient had a right knee arthroplasty on at this facility. Patient reports that on Saturday he was lifting a air conditioner and somehow broke his knee. He was seen at [facility] on had an x-ray and was told he had a fracture. He denies that he fell and also denies any known trauma. He reports that he did have some calf soreness the next day. He was scheduled for physical therapy on of this week and the physical therapist noted signs of infection. He reports that drainage began on Saturday. There is drainage noted to the inferior aspect of the incision and surrounding erythema and swelling. He did contact orthopedics over the weekend and was instructed to have a CT exam and follow-up at offsite facility per patient report. Patient is here for further evaluation and treatment. He denies any fever or chills denies nausea vomiting diarrhea. Related Data Home Medications Medication Instructions Recorded Confirmed cyclobenzaprine 10 mg tablet 10 mg PO TID PRN 07/26/22 07/22/23 acetaminophen 500 mg capsule 500 mg PO Q6H PRN 06/18/23 07/22/23 naproxen 250 mg tablet 250 - 500 mg (1 - 2 x 250 mg) PO 06/21/23 07/22/23 BID PRN moderate pain and swelling #40 tabs aspirin 81 mg tablet,delayed 81 mg PO DAILY 07/02/23 07/22/23 release oxycodone 5 mg tablet 5 - 10 mg (1 - 2 x 5 mg) PO Q4H 07/19/23 07/22/23 PRN pain, severe #14 tabs cephalexin 500 mg tablet 500 mg PO BID 10 days #20 tabs 07/22/23 Previous Rx's Medication Instructions Recorded naproxen 250 mg tablet 250 - 500 mg (1 - 2 x 250 mg) PO 06/21/23 BID PRN moderate pain and swelling #40 tabs oxycodone 5 mg tablet 5 - 10 mg (1 - 2 x 5 mg) PO Q4H 07/19/23 PRN pain, severe #14 tabs cephalexin 500 mg tablet 500 mg PO BID 10 days #20 tabs 07/22/23 Allergies Allergy/AdvReac Type Severity Reaction Status Date / Time No Known Allergies Allergy Verified 07/22/23 08:01 General Stated Complaint: Orthopedic WAI: 3 Review of Systems All systems reviewed & are unremarkable except as noted in HPI and below Constitutional Constitutional: Denies chills and Denies fever(s) Musculoskeletal Musculoskeletal: Reports as per HPI, Reports abnormal gait, Reports arthralgias and Reports joint swelling Integumentary/Breasts Skin/Breast: Reports erythema, Reports skin pain, Reports skin swelling and Reports wounds Neurologic Neurologic: Reports abnormal gait Exam Narrative Exam Narrative: Constitutional: Alert and oriented x3. Appears stated age. Normal body habitus. Head: Normocephalic, no trauma. Chest: RRR, Normal S1, S2, distal pulses intact. Resp: Lungs clear to auscultation bilaterally, no wheezes, rales, or rhonchi. Musculoskeletal: Unable to assess gait, see extremity exam below, Skin: Capillary refill less than 2 sec. Neurologic: Cranial nerves II-XII intact. Alert and oriented x 3. Motor: No deficits noted. Sensory: Intact bilaterally all 4 extremities. Hematologic/Lymphatic: No ecchymosis, no lymphadenopathy. Extrem General: no pedal edema Elbow/forearm/wrist images: 1. Healing incision 2. Area of erythema measuring 9x8 cm. A superficial area of drainage from inferior incision noted. No dehiscence noted. Right lower extremity: knee Details: abnormal to inspection (surounding erythema swelling to inferior incisio) Details: erythematous and other (drainage), swelling and warmth Course Vital Signs Vital signs: Vital Signs Temperature 36.7 C 07/22/23 08:01 Pulse 88 07/22/23 08:01 Respiratory Rate 16 07/22/23 08:01 Blood Pressure 147/86 H 07/22/23 08:01 Pulse Oximetry 97 07/22/23 08:01 Temperature 36.7 C 07/22/23 08:01 Temperature Source Temporal Artery Scan 07/22/23 08:01 Pulse 88 07/22/23 08:01 Respiratory Rate 16 07/22/23 08:01 Respiratory Effort Normal, Non-Labored 07/22/23 08:04 Blood Pressure 147/86 H 07/22/23 08:01 Blood Pressure Position Sitting 07/22/23 08:01 Pulse Oximetry 97 07/22/23 08:01 Oxygen Delivery Method Room Air 07/22/23 08:01 Oxygen Flow Rate 0 07/22/23 08:01 Pain Level 5 07/22/23 08:01 Comment last pain meds last night 07/22/23 08:01 Lab/Test Results Lab/Test Results: 07/22/23 08:24 Blood Blood Culture - Pending 07/22/23 08:24 Blood Blood Culture - Pending Medical Decision Making 58-year-old male presents to the ER with a chief complaint of right postoperative knee pain. Patient had a right knee arthroplasty on at this facility. Patient reports that on Saturday he was lifting a air conditioner and somehow broke his knee. He was seen at [facility] on had an x-ray and was told he had a fracture. He denies that he fell and also denies any known trauma. He reports that he did have some calf soreness the next day. He was scheduled for physical therapy on of this week and the physical therapist noted signs of infection. He reports that drainage began on Saturday. There is drainage noted to the inferior aspect of the incision and surrounding erythema and swelling. He did contact orthopedics over the weekend and was instructed to have a CT exam and follow-up at offsite facility per patient report. Patient is here for further evaluation and treatment. He denies any fever or chills denies nausea vomiting diarrhea. Orthopedics paged. [phone]: Spoke with Jennifer who is aware of patient, says he has a medial tibial plateau fracture. He does recommend the already ordered labs CT which was also ordered and a sed rate. Workup ordered as noted above, blood cultures x 2 ordered, CT right lower extremity without contrast. Cefazolin IV ordered however that was placed on hold until labs per Ortho request. Left knee XR ordered at Ortho request. 1106: Dr. Rodriguez at [facility]. He recommends CT of left lower extremity which was ordered, gram of Rocephin IV piggyback and cephalexin to go home with which was also ordered. Cefazolin canceled. 1124: Culture orders placed for any aspiration. Per Ortho request. Vitamin D workup ordered also requested by Ortho. Plan is for patient to follow-up as an outpatient with [facility]. Dr. Rodriguez is coordinating with [facility]. Will plan on discharge with the above forementioned plan pending CT left lower extremity and IV antibiotic infusion. CT left lower extremity result obtained. There is a vertically oriented fracture in the left medial tibial metaphases below the orthopedic hardware please see official report. Patient will be discharged home. Patient discharged home with cephalexin, and strict instructions for nonweightbearing wheelchair with transfers only. Patient is to follow-up with [facility] orthopedic doctor as directed by Orthopedics. This text was generated using [employer] system, please disregard any oddities of phrase or misspellings. Medical Records Medical records reviewed: Yes I reviewed the patient's medical records. Imaging Data Radiologic Study #2: Imaging: X-Ray Radiologist's impression: Exam: XR Left Knee Exam date and time: 07/22/2023 9:57 AM Age: 58 years old Clinical indication: Patient HX: Left knee pain TECHNIQUE: Imaging protocol: Radiologic exam of the left knee. Views: 3 views. COMPARISON: CR XR KNEE LT 2V AP,LAT 07/02/2023 9:21 AM FINDINGS: Bones/joints: Vertically oriented fracture of the left medial tibial metaphysis, extending inferiorly through the cortex at the diametaphyseal junction. This represents a change in appearance from 07/02/2023 radiographs. Hardware associated with medial compartment hemiarthroplasty has not changed significantly in position compared to the prior radiographs when allowing for differences in radiographic positioning/projection. There may be minimal effusion in the suprapatellar bursa. Soft tissues: No soft tissue gas or radiodense soft tissue foreign body. IMPRESSION: Vertically oriented fracture involving left medial tibial metaphysis, just inferior to the tibial hardware. Thank you for allowing us to participate in the care of your patient. Dictated and Authenticated by: Fernando Sutton MD Radiologic Study: Imaging: CT Scan Radiologist's impression: TECHNIQUE: Imaging protocol: CT of the right lower extremity without contrast was performed. Exam focused on the right knee. COMPARISON: CR XR KNEE RT 2V AP,LAT 07/02/2023 9:21 AM FINDINGS: Status post right knee medial compartment hemiarthroplasty. Metallic components of the orthopedic hardware produce significant artifact. A vertically oriented fracture extends through the medial tibial metaphysis, inferior to the tibial component of the hardware. The fracture line intersects the medial cortex at the diametaphyseal junction (series 4, image 34; series 2, image 81) . No obvious fracture of the patella, distal femur, or proximal fibula. No significant change in hardware position compared to radiographs of 07/02/2023.) A small joint effusion is present, nonspecific. IMPRESSION: 1. A small right knee joint effusion is present, nonspecific. Consider arthrocentesis if there is clinical concern of infection. 2. Vertically oriented fracture in the sagittal plane involves the medial tibial metaphysis below the orthopedic hardware. 3. No significant change in hardware position compared to radiographs of 07/02/2023. Lab Data Lab results reviewed: Yes I reviewed the patient's lab results. Labs: 07/22/23 09:15 Blood Blood Culture - Pending 07/22/23 09:11 Blood Blood Culture - Pending Laboratory Tests Range/Units 07/22/23 07/22/23 08:24 09:11 WBC (4.4-10.8) 10^3/uL 7.20 RBC (4.36-5.78) 10^6/uL 4.24 L Hgb (13.5-17.5) g/dL 12.2 L Hct (40.0-50.0) % 37.2 L MCV (80-95) fL 88 MCH (27.0-33.0) pg 28.8 MCHC (32.0-36.0) % 32.8 RDW (11.8-14.1) % 12.8 Plt Count (130-400) 10^3/uL 235 MPV (8.0-11.0) fL 9.8 Immature Gran % % 0.7 Neutrophils % % 71.2 Lymphocytes % % 18.8 Monocytes % % 6.7 Eosinophils % % 2.2 Basophils % % 0.4 Nucleated RBC % (0.0-0.3) % 0.0 Absolute Neutrophils (1.2-6.7) 10^3/uL 5.13 Absolute Lymphocytes (1.2-3.4) 10^3/uL 1.35 Absolute Monocytes (0.1-0.8) 10^3/uL 0.48 Absolute Eosinophils (0.0-0.7) 10^3/uL 0.16 Absolute Basophils (0.0-0.2) 10^3/uL 0.03 ESR (0-20) mm/hr 31 H Sodium (136-145) mmol/L 138 Potassium (3.5-5.1) mmol/L 3.8 Chloride (98-107) mmol/L 102 Carbon Dioxide (21.0-32.0) mmol/L 26.8 Anion Gap (3-11) mmol/L 9.2 BUN (7-18) mg/dL 20 H Creatinine (0.70-1.30) mg/dL 0.8 Est GFR (CKD-EPI 2020) (mL/min/1.73m2) 102.58 Glucose (74-106) mg/dL 153 H Calcium (8.5-10.1) mg/dL 8.9 Magnesium (1.8-2.4) mg/dL 1.9 Total Bilirubin (0.2-1.0) mg/dL 0.3 AST (15-37) U/L 17 ALT (16-63) U/L 35 Alkaline Phosphatase (46-116) U/L 124 H C-Reactive Protein Cancelled 5.77 H Total Protein (6.4-8.2) g/dL 7.3 Albumin (3.4-5.0) g/dL 3.5 Quality:SDOH Health Related Social Needs: No Data to Display PFSH All Active Problems (Updated 07/22/23 @ 12:15 by Adalgisa Paiz NP) Cellulitis of knee, right (Acute) Periprosthetic fracture around internal prosthetic right knee joint (Acute) Periprosthetic fracture around internal prosthetic left knee joint (Acute) History of unicondylar arthroplasty of right knee (Acute 06/21/23) History of unicondylar arthroplasty of left knee (Acute 05/24/23) Arthritis of knee, right (Acute) Arthritis of knee, left (Acute) Bilateral primary osteoarthritis of knee (Acute) Endobronchial mass (Acute) Trigger finger, left middle finger (Acute) Other symptoms involving skin and integumentary tissues (Acute) Subacute right lumbar radiculopathy (Acute) Shoulder joint pain (Acute) 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 (Acute) Pain in left wrist (Acute) Nicotine dependence (Acute) Neck pain (Acute) Lesion of ulnar nerve (Acute) Intervertebral disc rupture (Acute) Insomnia (Acute) Heel callus (Acute) Ganglion cyst (Acute) of left wrist Cervical radiculopathy (Acute) Carpal tunnel syndrome of left wrist (Acute) Benign paroxysmal positional vertigo (Acute) Arthropathy (Acute) Surgical History H/O discectomy History of carpal tunnel release History of colonoscopy 12/30/20,10/30/19 Social History Smoking/Tobacco Use Status: Former Tobacco Use Quit Date: 07/26/22 Tobacco: How many years used: 41 Smoking risk assessment performed?: Yes Alcohol Intake: current Alcohol Intake frequency: holidays/special occasions only Drug use: Never Substance use type: does not use Housing: house Do you feel safe at home: Yes Do you feel safe in your relationship?: Yes
--- NOTE | 2023-07-22 09:30 | DI.RAD_ITS ---
Exam(s) XR KNEE LT 3V AP,LAT,LORENZA EXAM: XR KNEE LT 3V AP,LAT,LORENZA CLINICAL HISTORY: left knee pain. TECHNIQUE: 2D digital imaging was performed. Three views. COMPARISON: CR XR KNEE LT 2V AP,LAT from 06/05/2023 CR XR KNEE RT 2V AP,LAT from 06/21/2023 CR XR KNEE RT 2V AP,LAT from 07/02/2023 CR XR KNEE LT 2V AP,LAT from 07/02/2023 FINDINGS: BONES: Medial femoral tibial joint space prosthesis appears unchanged. There is a sagittally orient ed fracture through the medial tibial metaphysis to the level of the knee prosthesis. The findings appear subacute. No bony destructive lesion is seen. JOINTS: The knee is normally aligned. A small joint effusion is seen. SOFT TISSUE: Swelling seen anteriorly. IMPRESSION: Nondisplaced, subacute appearing fracture of the medial tibial metaphysis. DATA REPOSITORY:
[2023-07-22 09:32] LABS: Abs Immature Grans 0.05 10^3/uL (0.0-0.06); Absolute Basophil Count 0.03 10^3/uL (0.0-0.2); Absolute Eosinophil Count 0.16 10^3/uL (0.0-0.7); Absolute Lymphocyte Count 1.35 10^3/uL (1.2-3.4); Absolute Monocyte Count 0.48 10^3/uL (0.1-0.8); Absolute Neutrophil Count 5.13 10^3/uL (1.2-6.7); Basophils % 0.4 %; Eosinophils % 2.2 %; HCT 37.2 % (40.0-50.0); HGB 12.2 g/dL (13.5-17.5); Immature Grans % 0.7 %; Lymphocytes % 18.8 %; MCH 28.8 pg (27.0-33.0); MCHC 32.8 % (32.0-36.0); MCV 88 fL (80-95); MPV 9.8 fL (8.0-11.0); Monocytes % 6.7 %; Neutrophils % 71.2 %; Platelet Count 235 10^3/uL (130-400); RBC 4.24 10^6/uL (4.36-5.78); RDW 12.8 % (11.8-14.1); RDW-SD 41.1 fL
[2023-07-22 09:36] LABS: ESR 31 mm/hr (0-20)
--- NOTE | 2023-07-22 09:45 | DI.VRAD_ITS ---
PROCEDURE INFORMATION: Exam: CT Right Lower Extremity Without Contrast, Knee Exam date and time: 07/22/2023 8:46 AM Age: 58 years old Clinical indication: Prior surgery; Surgery date: 1-6 months; Surgery type: Right knee pain, infection, recent arthroplasty, TECHNIQUE: Imaging protocol: CT of the right lower extremity without contrast was performed. Exam focused on the right knee. COMPARISON: CR XR KNEE RT 2V AP,LAT 07/02/2023 9:21 AM FINDINGS: Status post right knee medial compartment hemiarthroplasty. Metallic components of the orthopedic hardware produce significant artifact. A vertically oriented fracture extends through the medial tibial metaphysis, inferior to the tibial component of the hardware. The fracture line intersects the medial cortex at the diametaphyseal junction (series 4, image 34; series 2, image 81) . No obvious fracture of the patella, distal femur, or proximal fibula. No significant change in hardware position compared to radiographs of 07/02/2023.) A small joint effusion is present, nonspecific. IMPRESSION: 1. A small right knee joint effusion is present, nonspecific. Consider arthrocentesis if there is clinical concern of infection. 2. Vertically oriented fracture in the sagittal plane involves the medial tibial metaphysis below the orthopedic hardware. 3. No significant change in hardware position compared to radiographs of 07/02/2023. Dictated and Authenticated by: Fernando Sutton MD. Ordering:SHASHI Diana MD
[2023-07-22 09:51] LABS: ALT 35 U/L (16-63); AST 17 U/L (15-37); Albumin 3.5 g/dL (3.4-5.0); Alkaline Phosphatase 124 U/L (46-116); Anion Gap 9.2 mmol/L (3-11); BUN 20 mg/dL (7-18); Bilirubin, Total 0.3 mg/dL (0.2-1.0); C-Reactive Protein 5.77 mg/dL (<or=0.5); CO2 26.8 mmol/L (21.0-32.0); CREATININE 0.8 mg/dL (0.70-1.30); Calcium 8.9 mg/dL (8.5-10.1); Chloride 102 mmol/L (98-107); Estimated GFR 102.58 (mL/min/1.73m2); Glucose 153 mg/dL (74-106); Magnesium 1.9 mg/dL (1.8-2.4); Potassium 3.8 mmol/L (3.5-5.1); Sodium 138 mmol/L (136-145); Total Protein 7.3 g/dL (6.4-8.2)
--- NOTE | 2023-07-22 10:13 | DI.VRAD_ITS ---
PROCEDURE INFORMATION: Exam: XR Left Knee Exam date and time: 07/22/2023 9:57 AM Age: 58 years old Clinical indication: Patient HX: Left knee pain TECHNIQUE: Imaging protocol: Radiologic exam of the left knee. Views: 3 views. COMPARISON: CR XR KNEE LT 2V AP,LAT 07/02/2023 9:21 AM FINDINGS: Bones/joints: Vertically oriented fracture of the left medial tibial metaphysis, extending inferiorly through the cortex at the diametaphyseal junction. This represents a change in appearance from 07/02/2023 radiographs. Hardware associated with medial compartment hemiarthroplasty has not changed significantly in position compared to the prior radiographs when allowing for differences in radiographic positioning/projection. There may be minimal effusion in the suprapatellar bursa. Soft tissues: No soft tissue gas or radiodense soft tissue foreign body. IMPRESSION: Vertically oriented fracture involving left medial tibial metaphysis, just inferior to the tibial hardware. Dictated and Authenticated by: Fernando Sutton MD. Ordering:SHASHI Diana MD
--- NOTE | 2023-07-22 11:00 | DI.CT_ITS ---
Exam(s) CT LOWER EXTREMITY LT WO EXAM: CT LOWER EXTREMITY LT WO CLINICAL HISTORY: Left knee fracture. TECHNIQUE: Imaging Protocol: Axial computed tomography images with coronal and sagittal reformatted images were created and reviewed. CONTRAST MATERIAL: Intravenous: Omnipaque 350 Contrast volume:structured data in ml Contrast route:IV - COMPARISON: CT CT LOWER EXTREMITY RT WO from 07/22/2023 FINDINGS: Bones: A medial femoral tibial joint space prosthesis is in place which creates some artifact. There is a mildly comminuted vertically oriented fracture through of the medial tibial metaphysis, extendi ng from the medial cortex to the tibial component of the prosthesis. No additional fractures. No cellulitic or osteomyelitic changes are identified. No lytic or sclerotic lesions are identified. Joints: The patellofemoral and lateral femoral tibial joint spaces are maintained. A moderate-sized joint effusion is seen. Soft Tissues: Anterior soft tissue swelling. IMPRESSION: Mildly comminuted fracture at the medial tibial metaphysis beneath the level of the tibial component of the knee prosthesis. RADIATION DOSE DELIVERED: Total DLP DATA REPOSITORY: All CT scans at this facility are submitted to the National Radiology Data Registry (NRDR) Dose Index Registry (DIR) with the [employer] (A[employer]). RADIATION OPTIMIZATION: All CT scans at this facility use at least one of these dose optimization te chniques: automated exposure control; mA and/or kV adjustment per patient size (includes targeted exa ms where dose is matched to clinical indication); or iterative reconstruction.
[2023-07-22] MEDS: Cephalexin 500 MG CAP PO (11:21)
[2023-07-22] MEDS: Cephalexin 500 MG CAP, 2 CAPS/BTL PO (11:21)
[2023-07-22] MEDS: cefTRIAXone 1 GM/50 ML BAG IVPB (11:21)
[2023-07-22 11:39] LABS: PHOSPHORUS 3.6 mg/dL (2.6-4.7)
--- NOTE | 2023-07-22 11:48 | DI.VRAD_ITS ---
PROCEDURE INFORMATION: Exam: CT Left Lower Extremity Without Contrast, Knee Exam date and time: 07/22/2023 11:30 AM Age: 58 years old Clinical indication: Prior surgery; Surgery date: 1-6 months; Surgery type: Partial knee replacement; Patient HX: Left knee pain TECHNIQUE: Imaging protocol: CT of the left lower extremity without contrast was performed. Exam focused on the left knee. COMPARISON: CR XR KNEE LT 3V AP,LAT,LORENZA 07/22/2023 9:57 AM FINDINGS: Status post left medial femorotibial compartment hemiarthroplasty. Metallic components of the orthopedic hardware produce significant artifact on several images. There is a vertically oriented fracture in the sagittal plane involving the medial tibial metaphysis below the tibial hardware. This fracture is mildly comminuted and extends inferiorly to the medial cortex at the diametaphyseal junction. No obvious fracture of the patella, distal femur, or proximal fibula. There is only trace joint effusion. IMPRESSION: Vertically oriented fracture in the sagittal plane involves the left medial tibial metaphysis below the orthopedic hardware. Dictated and Authenticated by: Fernando Sutton MD. Ordering:SHASHI Diana MD
[2023-07-22 12:25] VITALS: BP 142/93; PULSE 81; RESP 16; TEMP 36.5; O2SAT 97
--- NOTE | 2023-07-22 13:32 | OCONE_ITS ---
Date of service: 07/22/23 Time of Service: 11:00 History of Present Illness History of Present Illness Chief Complaint: Right worse than Left Knee Pain Narrative: Adarsh is a 58-year-old male who presents to the emergency department for worsening pain about the right more than left knee. He underwent left medial unicompartmental knee arthroplasty on May 23 and followed that with unicompartmental arthroplasty on the right side on June [address] Roberts. He reports that things were moving relatively well. He had returned to work. He reported some mild medial based pain on the left knee which was worsening with prolonged weightbearing and with vigorous physical therapy. He feels the right side was actually even doing maybe slightly better than the left side after the 2-week visit. He had returned to work at the [employer]. On Saturday, July 16, he was lifting an air conditioner unit into some windows at the facility. He noted some increase in pain at this time. He remembers having some limitations weightbearing but all still able to weight-bear without assistive device. He applied ice to the knees, right more than left. However, on he saw the nurse at facility as he has having difficulty with ambulation. He was seen initially at the [facility] emergency department. There is some concern about the distal aspect of his wound but also an x-ray which showed fracture of the medial tibial plateau. He reportedly had multiple aspirations which were negative for any fluid within the right knee. The case was discussed with Dr. Roberts would recommend a CT scan of the right knee and was going to see in follow-up. The CT scan was unfortunately denied and given his ongoing symptoms, he presented back to the emergency department here at [facility] for evaluation. He is currently wearing a short hinged knee brace on the left knee. He wears a knee immobilizer on the right knee. He is largely staying in the wheelchair except for transfers to the bathroom. At rest he has minimal pain. Gentle active range of motion of either knee does not cause any pain. He reports having this area on the distal aspect of the knee which has never fully healed all the way but does seem to be slightly worse in the last week. He denies fevers or chills. He has only scant discharge on any dressing about the right knee. Consults Consult date: 07/22/23 Requesting physician: Adalgisa Paiz Consult Reason Bilateral knee pain s/p unicompartmental arthroplasty Assessment and Plan Assessment and plan (1) Periprosthetic fracture around internal prosthetic right knee joint: Status: Acute Assessment and plan: Adarsh is a 58-year-old who is almost 4 weeks status post right knee medial compartment arthroplasty. He reports no significant issues with his right knee until he lifted an air conditioning unit while at work. Unfortunate this has resulted in a fracture of the medial tibial plateau. There has been some notable malpositioning of the component with subsidence/depression, and angulation. Fortunately, he does have a fairly benign exam otherwise. There is an area of wound concern over the distal aspect which is seems to be related to either hematoma or stitch abscess. I did aspirate the knee under sterile conditions and was able to obtain about 2 to 3 cc of normal appearing fluid which was sent to the lab for culture as I do not have enough for cell count. He has no pain with passive range of motion and therefore I do not believe this represents a significant infection. I will treat with a dose of ceftriaxone today and a home dose of Keflex for what ever superficial infection may be wanting to start. Given the comminution of the fracture and its positioning he should remain nonweightbearing on the right side. He will continue to use knee immobilizer when he is up. Unfortunately, the left side was causing some pain and therefore an x-ray was checked today which shows a fracture on the left side as well. This fracture may have some signs of early healing. He did report some residual pain in the left side although is ambulating without difficulty and without assistive device. My concern is that he had some type of stress reaction from the surgery which was then aggravated by lifting of the air conditioning unit and by progressive and persistent weightbearing. I did check vitamin D levels which were low at 25. He would benefit from vitamin D supplementation. He has no other history of bone disease. He has no significant medical comorbidities. As for the left side, I would want him to stay in the knee immobilizer. He will be partial weightbearing simply enough for transfers from his wheelchair to the commode. I do not know what the best next step is. There is very little in the literature to guide this treatment. Given that there has been some positioning change of the component revision arthroplasty would be the usual next step. However, I do wonder if allowing this to consolidate would be beneficial as a potential option for treatment but also for later fixation with salvage revision arthroplasty. Unfortunate requiring to be largely nonweightbearing on bilateral lower extremities. I reviewed the case with a colleague at [facility] for their input. I also discussed the case with his initial surgeon, Dr. Roberts, who was involved. I will make referral to [facility] orthopedics for an urgent evaluation. I will continue to follow the culture results although the preliminary results are negative. I reviewed all this with Adarsh and his family. All of their questions were answered. (2) Periprosthetic fracture around internal prosthetic left knee joint: Status: Acute (3) Superficial disruption of operation wound: Status: Acute Review of Systems All systems reviewed & are unremarkable except as noted in HPI and below PFSH All Active Problems (Updated 07/23/23 @ 05:49 by Jim Rodriguez MD) Superficial disruption of operation wound (Acute) Cellulitis of knee, right (Acute) Periprosthetic fracture around internal prosthetic right knee joint (Acute) Periprosthetic fracture around internal prosthetic left knee joint (Acute) History of unicondylar arthroplasty of right knee (Acute 06/21/23) History of unicondylar arthroplasty of left knee (Acute 05/24/23) Arthritis of knee, right (Acute) Arthritis of knee, left (Acute) Bilateral primary osteoarthritis of knee (Acute) Endobronchial mass (Acute) Trigger finger, left middle finger (Acute) Other symptoms involving skin and integumentary tissues (Acute) Subacute right lumbar radiculopathy (Acute) Shoulder joint pain (Acute) 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 (Acute) Pain in left wrist (Acute) Nicotine dependence (Acute) Neck pain (Acute) Lesion of ulnar nerve (Acute) Intervertebral disc rupture (Acute) Insomnia (Acute) Heel callus (Acute) Ganglion cyst (Acute) of left wrist Cervical radiculopathy (Acute) Carpal tunnel syndrome of left wrist (Acute) Benign paroxysmal positional vertigo (Acute) Arthropathy (Acute) Surgical History H/O discectomy History of carpal tunnel release History of colonoscopy 12/30/20,10/30/19 Social History Smoking/Tobacco Use Status: Former Tobacco Use Quit Date: 07/26/22 Tobacco: How many years used: 41 Smoking risk assessment performed?: Yes Alcohol Intake: current Alcohol Intake frequency: holidays/special occasions only Drug use: Never Substance use type: does not use Housing: house Do you feel safe at home: Yes Do you feel safe in your relationship?: Yes Exam Const General: cooperative, healthy appearing, comfortable and no acute distress Resp Effort & Inspection: normal respiratory effort Extrem Other: Right knee exam: There is a well-approximated knee incision. The proximal three fourths of the wound is well-healed. There is some bogginess to the knee but no significant effusion. The distal one quarter of the wound is approximated although there is some eschar between the skin edges. There is some mild hyperemia and possibly some erythema around this area. There is some swelling locally to this part of the wound compared to the remainder of the wound. Some light pressure in this area expresses a scant amount of purulent material and a few cc of old blood. No other area of fluctuance. No other purulent areas. I do not detect any suture material remaining in the wound beds. I utilized Betadine and clean the wound and inspected it briefly and then covered with a dressing. Range of motion was not fully tested on ultimate numbers. However, he did have no pain with passive range of motion from 5 to 90 degrees. There is a mild varus deformity of the right knee. There was some laxity with valgus stress, 4 to 5 mm, however, with a firm endpoint. This did cause very mild pain. There is pain to palpation over the medial aspect of the tibia. Mild pain over the medial joint line and the medial soft tissues. No pain laterally. He is able to straight leg raise without a lag. Sensation intact to light touch over the deep and superficial peroneal nerve and tibial nerve. Palpable DP and PT pulse. Left knee exam: There is a well-healed incision without signs of infection. Minimal effusion. Mild bogginess about the knee. There is some generalized discomfort with palpation about the medial tibia and the medial joint line area. Mild varus deformity. 3 to 4 mm of valgus opening with a firm endpoint. Only minimal pain with stress testing of the knee. Passively he tolerates range of motion from nearly fully straight to 95 degrees. Actively he demonstrates range of motion with some slight increase in pain. He is able straight leg raise. Sensation intact to light touch over the deep and superficial peroneal nerve and tibial nerve. Palpable DP and PT pulse. Results Last Vital Signs Temp 36.5 C 07/22/23 12:25 Pulse 81 07/22/23 12:25 Resp 16 07/22/23 12:25 BP 142/93 H 07/22/23 12:25 Pulse Ox 97 07/22/23 12:25 Labs 07/22/23 09:11 07/22/23 09:11 Labs: Laboratory Results - last 24 hr 07/22/23 07/22/23 07/22/23 08:24 09:11 11:18 WBC 7.20 RBC 4.24 L Hgb 12.2 L Hct 37.2 L MCV 88 MCH 28.8 MCHC 32.8 RDW 12.8 Plt Count 235 MPV 9.8 Immature Gran % 0.7 Neutrophils % 71.2 Lymphocytes % 18.8 Monocytes % 6.7 Eosinophils % 2.2 Basophils % 0.4 Nucleated RBC % 0.0 Absolute Neutrophils 5.13 Absolute Lymphocytes 1.35 Absolute Monocytes 0.48 Absolute Eosinophils 0.16 Absolute Basophils 0.03 ESR 31 H Sodium 138 Potassium 3.8 Chloride 102 Carbon Dioxide 26.8 Anion Gap 9.2 BUN 20 H Creatinine 0.8 Est GFR (CKD-EPI 2020) 102.58 Glucose 153 H Calcium 8.9 Cancelled Phosphorus 3.6 Magnesium 1.9 Total Bilirubin 0.3 AST 17 ALT 35 Alkaline Phosphatase 124 H C-Reactive Protein Cancelled 5.77 H Total Protein 7.3 Albumin 3.5 25-OH Vitamin D Total 25.0 L Imaging Imaging Studies: X-ray of the right knee was previously performed in [facility] was reviewed which demonstrates fracture about the medial tibial plateau. X-ray of the left knee performed today demonstrates a vertically oriented fracture about the medial tibial plateau adjacent to the tibial baseplate. There has likely been some depression in this fragment and subsidence of the implant although without gross abnormalities in a coronal plane. CT scan of the right knee demonstrates a comminuted fracture of the medial tibial plateau with depression anteriorly more than posteriorly. There may be some overall subsidence of the component. No significant coronal malalignment. There is comminution anteriorly and a faint fracture line posteriorly. CT scan of the left knee demonstrates a fracture which is mostly vertical in nature about the medial tibia. There does appear to be some medialization of the proximal tibial bone with the implant which creates a gap between the lateral peg and his host bone. There is likely some depression of this fracture fragment with subsidence of the implant without significant coronal malalignment or sagittal malalignment. There does appear to be some calcification adjacent to the fracture, more posteriorly and anteriorly which could suggest some healing. Procedures Joint Aspiration/Injection Joint Asp./Inject. 1: Time out performed: Yes Side of body: right Joint aspirated: knee Skin prep: Chlorhexidine Local anesthesia used: other (Ethyl Chloride) Needle size used: 18G Fluid obtained: clear Total fluid obtained (ml): 2
--- NOTE | 2023-07-23 09:25 | NUR.NOTE ---
Accessed Pt chart to read discharge summary. [facility] wanted to Know if we sent the referral to [facility]. I advised that we did not, just to ortho or ER at [facility]. Elvira at [facility] was sending the referral out.
== END 2023-07-22 12:26 | disposition home or self-care (01) ==
PROVIDERS: Emergency Provider Registered Nurse Emergency; PCP Nurse Practitioner Family
DX: M97.11XA Periprosthetic fracture around internal prosthetic right knee joint, initial encounter (principal); M97.12XA Periprosthetic fracture around internal prosthetic left knee joint, initial encounter; T81.31XA Disruption of external operation (surgical) wound, not elsewhere classified, initial encounter; X50.0XXA Overexertion from strenuous movement or load, initial encounter
CPT/HCPCS: 20610; 36415; 73562; 80053; 82306; 85652; 87040; 96365; 99285; 73700; 82310; 83735; 84100; 85025; 86140; 87070; 87205; 99283; J0696